=== PATIENT | female | born 1970 | race Two or more races ===

== ENCOUNTER 2017-08-05 10:39 | Emergency (ER) | payer SELFPAY ==
[~2017-08-05] VITALS: Ht 165.1 cm; Wt 72.6 kg
[2017-08-05 11:15] VITALS: BP 113/60
[2017-08-05 11:33] LABS: APPEARANCE,URINE SLIGHTLY CLOUDY; BILIRUBIN, URINE NEGATIVE (NEGATIVE); COLOR,URINE PALE YELLOW; GLUCOSE, URINE (UA) NEGATIVE (NEGATIVE); KETONES,URINE NEGATIVE (NEGATIVE); LEUKOCYTE ESTERASE ,URINE 3+ (NEGATIVE); NITRITE,URINE NEGATIVE (NEGATIVE); PH,URINE 5 (4.5-8.0); PROTEIN,URINE 2+ (NEGATIVE); UROBILINOGEN,URINE NORMAL MG/DL (0.0-1.0)
[2017-08-05 11:34] LABS: BASOPHILS % (AUTO) 0.5 % (0.0-2.0); EOSINOPHILS % (AUTO) 2.8 % (0.0-3.0); HEMATOCRIT 36.8 % (37.0-47.0); HEMOGLOBIN 12.2 G/DL (12.0-16.0); LYMPHOCYTES % (AUTO) 39.4 % (20.0-45.0); MEAN CORPUSCULAR VOLUME 87 FL (80-99); NEUTROPHILS % (AUTO) 49.3 % (45.0-75.0); PLATELET COUNT 232 K/UL (150-450); RED BLOOD COUNT 4.21 M/UL (4.20-5.40); RED CELL DISTRIBUTION WIDTH 12.1 % (11.6-14.8); WHITE BLOOD COUNT 4.4 K/UL (4.8-10.8)
[2017-08-05 11:45] LABS: ANION GAP 5 mmol/L (5-15); BLOOD UREA NITROGEN 19 mg/dL (7-18); CALCIUM 9.1 MG/DL (8.5-10.1); CARBON DIOXIDE 30 MMOL/L (21-32); CHLORIDE 104 MMOL/L (98-107); CREATININE 1.1 MG/DL (0.55-1.30); POTASSIUM 3.7 MMOL/L (3.5-5.1); SODIUM 139 MMOL/L (136-145)
[2017-08-05 11:56] LABS: ALANINE AMINOTRANSFERASE 30 U/L (12-78); ALBUMIN 3.7 G/DL (3.4-5.0); ALKALINE PHOSPHATASE 74 U/L (46-116); ASPARTATE AMINO TRANSFERASE 19 U/L (15-37); BILIRUBIN,TOTAL 0.4 MG/DL (0.2-1.0); CREATINE KINASE 159 U/L (26-308)
[2017-08-05] MEDS ORDERED: cefTRIAXone 1 GM in NS 55 ML IVPB ONE (12:15)
--- NOTE | 2017-08-05 15:11 | Emergency Room Report ---
History of Present Illness General Chief Complaint: General Complaint Source: Patient, EMS Present Illness HPI Paramedics were called because this patient was in the streets naked. They're unable to determine where she is from. She denies taking any psychiatric medications at this time. She also denies drugs or alcohol. She denies any pain at this time. She states she's been eating well. The patient states that in the past she was on Zyprexa. It's been several years since she was last taking it. No fevers, chills, chest pain, palpitations, nausea, vomiting, diarrhea, dysuria , abdominal pain, shortness of breath, depression, visual changes, headache. Allergies: Coded Allergies: No Known Allergies (Unverified , 08/05/17) Patient History Past Medical History: see triage record Social History: Denies: smoking, alcohol use, drug use Social History Narrative From [place] - in for 2 years Allegedly lives with father Last Menstrual Period: unknown Reviewed Nursing Documentation: PMH: Agreed; PSxH: Agreed Nursing Documentation-PMH Past Medical History: No History, Except For Review of Systems All Other Systems: negative except mentioned in HPI Physical Exam Vital Signs Date Time Temp Pulse Resp B/P (MAP) Pulse Ox O2 Delivery O2 Flow Rate FiO2 08/05/17 10:27 97.6 96 18 111/65 98 Room Air 97.5 Sp02 EP Interpretation: reviewed, normal General Appearance: well appearing, no apparent distress, other - dishevelled - slightly delusional GCS 14 Head: normocephalic Eyes: bilateral eye normal inspection, bilateral eye PERRL, bilateral eye EOMI ENT: moist mucus membranes Neck: supple Respiratory: lungs clear, normal breath sounds Cardiovascular #1: regular rate, rhythm Cardiovascular #2: 2+ radial (R) Gastrointestinal: normal inspection, normal bowel sounds, non tender, no mass, non-distended Musculoskeletal: back normal, gait/station normal, normal range of motion Neurologic: alert, grossly normal, oriented - X2 - somewhat unclear where she is Psychiatric: no suicidal/homicidal ideation, other - flat affect Reflexes: 2+ knee (R), 2+ knee (L) Skin: warm/dry, other - hyperpigmented arms Medical Decision Making Diagnostic Impression: Primary Impression: Bizarre behavior Additional Impressions: Schizophrenia Qualified Codes: F20.9 - Schizophrenia, unspecified UTI (urinary tract infection) Qualified Codes: N30.00 - Acute cystitis without hematuria ER Course Patient is brought in for bizarre behavior. She's denies suicidal or homicidal ideation. She states she's been eating well. Differential includes exacerbation of schizophrenia, drug ingestion, electrolyte abnormalities amongst others. Evaluation will be with EKG, chest x-ray and labs. Labs are unremarkable. Patient has UTI and is treated with Rocephin IV. Patient given dose of Zyprexa. We are unable to determine the patient's home location. A social service consult was requested. Discussed with [employer]. The history SW obtained was different from what happened with the patient. I am uncomfortable discharging the patient who - although improved at this time still exhibits delusional thoughts. Discussed with Dr. Landry. The patient signed out to Dr. Landry Patient stable through night. No delusional thinking. Purposeful. Treated for UTI and trichomonas. Zyprexa given this AM. Patient stable for discharge. Her plan is to go to her father's house. Taken to bus to ensure she knows how to get there. Laboratory Tests Test 08/05/17 11:04 White Blood Count 4.4 K/UL (4.8-10.8) L Red Blood Count 4.21 M/UL (4.20-5.40) Hemoglobin 12.2 G/DL (12.0-16.0) Hematocrit 36.8 % (37.0-47.0) L Mean Corpuscular Volume 87 FL (80-99) Mean Corpuscular Hemoglobin 29.0 PG (27.0-31.0) Mean Corpuscular Hemoglobin Concent 33.2 G/DL (32.0-36.0) Red Cell Distribution Width 12.1 % (11.6-14.8) Platelet Count 232 K/UL (150-450) Mean Platelet Volume 7.0 FL (6.5-10.1) Neutrophils (%) (Auto) 49.3 % (45.0-75.0) Lymphocytes (%) (Auto) 39.4 % (20.0-45.0) Monocytes (%) (Auto) 8.0 % (1.0-10.0) Eosinophils (%) (Auto) 2.8 % (0.0-3.0) Basophils (%) (Auto) 0.5 % (0.0-2.0) Urine Color Pale yellow Urine Appearance Slightly cloudy Urine pH 5 (4.5-8.0) Urine Specific [place] 1.015 (1.005-1.035) Urine Protein 2+ (NEGATIVE) H Urine Glucose (UA) Negative (NEGATIVE) Urine Ketones Negative (NEGATIVE) Urine Occult Blood 1+ (NEGATIVE) H Urine Nitrite Negative (NEGATIVE) Urine Bilirubin Negative (NEGATIVE) Urine Urobilinogen Normal MG/DL (0.0-1.0) Urine Leukocyte Esterase 3+ (NEGATIVE) H Urine RBC 10-15 /HPF (0 - 2) H Urine WBC 10-15 /HPF (0 - 2) H Urine Squamous Epithelial Cells Moderate /LPF (NONE/OCC) H Urine Bacteria Few /HPF (NONE) Urine Trichomonas Few /HPF (NONE) H Urine HCG, Qualitative Negative (NEGATIVE) Sodium Level 139 MMOL/L (136-145) Potassium Level 3.7 MMOL/L (3.5-5.1) Chloride Level 104 MMOL/L (98-107) Carbon Dioxide Level 30 MMOL/L (21-32) Anion Gap 5 mmol/L (5-15) Blood Urea Nitrogen 19 mg/dL (7-18) H Creatinine 1.1 MG/DL (0.55-1.30) Estimate Glomerular Filtration Rate 53.0 mL/min (>60) Glucose Level 122 MG/DL (74-106) H Calcium Level 9.1 MG/DL (8.5-10.1) Total Bilirubin 0.4 MG/DL (0.2-1.0) Aspartate Amino Transferase (AST) 19 U/L (15-37) Alanine Aminotransferase (ALT) 30 U/L (12-78) Alkaline Phosphatase 74 U/L (46-116) Total Creatine Kinase 159 U/L (26-308) Troponin I 0.000 ng/mL (0.000-0.056) Total Protein 7.3 G/DL (6.4-8.2) Albumin 3.7 G/DL (3.4-5.0) Globulin 3.6 g/dL Albumin/Globulin Ratio 1.0 (1.0-2.7) Thyroid Stimulating Hormone (TSH) 2.093 uiU/mL (0.358-3.740) Salicylates Level 0.3 ug/mL (2.8-20) L Urine Opiates Screen Negative (NEGATIVE) Acetaminophen Level < 2 MCG/ML (10-30) L Urine Barbiturates Screen Negative (NEGATIVE) Phencyclidine (PCP) Screen Negative (NEGATIVE) Urine Amphetamines Screen Negative (NEGATIVE) Urine Benzodiazepines Screen Negative (NEGATIVE) Urine Cocaine Screen Negative (NEGATIVE) Urine Marijuana (THC) Screen Negative (NEGATIVE) Serum Alcohol < 3 mg/dL EKG Diagnostic Results Rate: normal Rhythm: NSR ST Segments: no acute changes Rhythm Strip Diag. Results EP Interpretation: yes Rhythm: NSR, no PVC's, no ectopy Status: improved Disposition: HOME, SELF-CARE Condition: Improved Scripts Metronidazole* (FLAGYL*) 500 Mg Tablet 500 MG ORAL TID, #21 TAB Prov: Rm Rodriguez M.D. 08/06/17 Nitrofurantoin Monohyd/M-Cryst* (MACROBID 100 MG*) 100 Mg Capsule 100 MG ORAL EVERY 12 HOURS for 7 Days, CAP Prov: Rm Rodriguez M.D. 08/06/17 Olanzapine* (ZYPREXA*) 5 Mg Tablet 5 MG ORAL DAILY, #20 TAB 1 Refill Prov: Rm Rodriguez M.D. 08/06/17 Referrals: NOT CHOSEN SANDIP/,REFERRING (PCP) Rm Rodriguez M.D. Aug 05, 2017 15:11
[2017-08-05 15:15] VITALS: BP 121/71
--- NOTE | 2017-08-05 16:54 | Diagnostic Imaging Report ---
Indication: Altered mental status Technique: Continuous helical CT scanning of the head was performed without intravenous contrast material. Axial and coronal 5 mm sections were generated. Radiation dose was minimized using automated exposure control Dose: Total Dose Length Product - DLP 1295.[address] Dose Index - CTDIvol(s) 70.38 mGy. Comparison: none Findings: The ventricular system is normal in size and configuration. There is no shift of midline structures. No abnormal extra-axial fluid collections are noted. There is no evidence of intracerebral bleeding. No other abnormal high or low density areas are noted within the brain. Normal tripathi-white differentiation. The calvarium is intact. The sinuses are clear. The visualized orbits are unremarkable. The mastoids are clear Impression: Normal CT scan of the head without contrast material. The CT scanner at [facility] is accredited by the [employer] and the scans are performed using protocols designed to limit radiation exposure to as low as reasonably achievable to attain images of sufficient resolution adequate for diagnostic evaluation.
[2017-08-05 19:00] VITALS: BP 119/67
[2017-08-05 21:00] VITALS: BP 125/66
--- NOTE | 2017-08-05 22:53 | Emergency Room Report ---
History of Present Illness General Chief Complaint: General Complaint Source: Patient, EMS Present Illness HPI Patient has been calm and cooperative here, does not appear agitated all, not requiring medications. She is pending PET team evaluation as gravely disabled. Noncontrast CT head was obtained, revealed no acute pathology, and patient has not exhibited any neurologic deficits, and remains medically cleared for placement after PET team evaluation. Allergies: Coded Allergies: No Known Allergies (Unverified , 08/05/17) Patient History Past Medical History: see triage record Last Menstrual Period: unknown Reviewed Nursing Documentation: PMH: Agreed; PSxH: Agreed Nursing Documentation-PMH Past Medical History: No History, Except For Physical Exam Vital Signs Date Time Temp Pulse Resp B/P (MAP) Pulse Ox O2 Delivery O2 Flow Rate FiO2 08/05/17 10:27 97.6 96 18 111/65 98 Room Air 97.5 Medical Decision Making Diagnostic Impression: Primary Impression: Bizarre behavior Additional Impressions: Schizophrenia Qualified Codes: F20.9 - Schizophrenia, unspecified UTI (urinary tract infection) Qualified Codes: N30.00 - Acute cystitis without hematuria Last Vital Signs Date Time Temp Pulse Resp B/P (MAP) Pulse Ox O2 Delivery O2 Flow Rate FiO2 08/05/17 19:00 97.8 56 18 119/67 96 Room Air 97.8 Referrals: NOT CHOSEN SANDIP/,REFERRING (PCP) DAFNE ESPARZA M.D Aug 05, 2017 22:53
[2017-08-05 23:00] VITALS: BP 117/67
[2017-08-06 01:00] VITALS: BP 122/66
[2017-08-06 03:00] VITALS: BP 126/66
[2017-08-06 05:00] VITALS: BP 121/63
--- NOTE | 2017-08-06 06:05 | Emergency Room Report ---
Physical Exam Vital Signs Date Time Temp Pulse Resp B/P (MAP) Pulse Ox O2 Delivery O2 Flow Rate FiO2 08/05/17 10:27 97.6 96 18 111/65 98 Room Air 97.5 Medical Decision Making Diagnostic Impression: Primary Impression: Bizarre behavior Additional Impressions: Schizophrenia Qualified Codes: F20.9 - Schizophrenia, unspecified UTI (urinary tract infection) Qualified Codes: N30.00 - Acute cystitis without hematuria Trichomonal cervicitis ER Course Patient signout to me or possible psych evaluation in the morning. Patient is been calm and not agitated at all. She was treated for UTI with Rocephin. I noticed that she had trichomonas in her urine. I order Flagyl for her. Last Vital Signs Date Time Temp Pulse Resp B/P (MAP) Pulse Ox O2 Delivery O2 Flow Rate FiO2 08/06/17 03:00 97.9 76 16 126/66 99 Room Air 97.9 Referrals: NOT CHOSEN SANDIP/,REFERRING (PCP) DEDRA TREJO M.D. Aug 06, 2017 06:05
[2017-08-06] MEDS ORDERED: metroNIDAZOLE 500mg tab ORAL ONE (06:15)
[2017-08-06] MEDS ORDERED: ZYPREXA5 MG ORAL (06:29)
[2017-08-06] MEDS ORDERED: NITROFURANTOIN100 M2 ORAL (06:29)
[2017-08-06] MEDS ORDERED: METRONIDAZOLE500 MG ORAL (06:29)
[2017-08-06 06:35] VITALS: BP 126/66
--- NOTE | 2017-08-06 17:25 | Cardiology Report ---
APPROVED REPORT EKG Measurement Heart [id number] ME [id number] Normal sinus rhythm with sinus arrhythmia Moderate voltage criteria for LVH, may be normal variant Nonspecific T wave abnormality Abnormal ECG
[2017-08-07] MEDS ORDERED: NKM (08:56)
== END 2017-08-06 06:35 | disposition home or self-care (01) ==
LOC: EDBD 10:39 → EMR 11:00
DX: F91.9 Conduct disorder, unspecified (principal); F20.9 Schizophrenia, unspecified; N39.0 Urinary tract infection, site not specified; A59.09 Other urogenital trichomoniasis; R41.82 Altered mental status, unspecified
CPT/HCPCS: 36415; 70450; 80053; 80307; 81003; 81025; 82550; 84443; 84484; 85025; 87086; 93005; 96374; 99284; G0480; J0696; 80329

== ENCOUNTER 2017-08-07 08:52 | Emergency (ER) | payer SELFPAY ==
[~2017-08-07] VITALS: Ht 167.6 cm; Wt 68.0 kg
[~2017-08-07 08:52] MED LIST: METRONIDAZOLE500 MG ORAL; NITROFURANTOIN100 M2 ORAL; ZYPREXA5 MG ORAL
[2017-08-07] MEDS ORDERED: NKM (08:56)
[2017-08-07] MEDS ORDERED: ZyPREXA Zydis 10mg tab ORAL ONE (09:30)
[2017-08-07] MEDS ORDERED: metroNIDAZOLE 500mg tab ORAL ONE (09:30)
[2017-08-07 09:51] LABS: APPEARANCE,URINE CLEAR; BILIRUBIN, URINE NEGATIVE (NEGATIVE); COLOR,URINE PALE YELLOW; GLUCOSE, URINE (UA) NEGATIVE (NEGATIVE); KETONES,URINE NEGATIVE (NEGATIVE); LEUKOCYTE ESTERASE ,URINE 2+ (NEGATIVE); NITRITE,URINE NEGATIVE (NEGATIVE); PH,URINE 5 (4.5-8.0); PROTEIN,URINE NEGATIVE (NEGATIVE); UROBILINOGEN,URINE NORMAL MG/DL (0.0-1.0)
[2017-08-07 09:54] LABS: BASOPHILS % (AUTO) 1.7 % (0.0-2.0); EOSINOPHILS % (AUTO) 5.1 % (0.0-3.0); HEMATOCRIT 37.6 % (37.0-47.0); HEMOGLOBIN 12.6 G/DL (12.0-16.0); LYMPHOCYTES % (AUTO) 40.6 % (20.0-45.0); MEAN CORPUSCULAR VOLUME 87 FL (80-99); MONOCYTES % (AUTO) 7.3 % (1.0-10.0); NEUTROPHILS % (AUTO) 45.3 % (45.0-75.0); PLATELET COUNT 258 K/UL (150-450); RED BLOOD COUNT 4.31 M/UL (4.20-5.40); RED CELL DISTRIBUTION WIDTH 12.2 % (11.6-14.8); WHITE BLOOD COUNT 3.7 K/UL (4.8-10.8)
[2017-08-07 09:57] LABS: ANION GAP 7 mmol/L (5-15); BLOOD UREA NITROGEN 17 mg/dL (7-18); CALCIUM 9.2 MG/DL (8.5-10.1); CARBON DIOXIDE 30 MMOL/L (21-32); CHLORIDE 105 MMOL/L (98-107); CREATININE 0.9 MG/DL (0.55-1.30); POTASSIUM 4.1 MMOL/L (3.5-5.1); SODIUM 142 MMOL/L (136-145)
[2017-08-07 10:01] LABS: ALANINE AMINOTRANSFERASE 28 U/L (12-78); ALBUMIN 4.2 G/DL (3.4-5.0); ALKALINE PHOSPHATASE 81 U/L (46-116); ASPARTATE AMINO TRANSFERASE 26 U/L (15-37); BILIRUBIN,TOTAL 0.7 MG/DL (0.2-1.0)
[2017-08-07 10:34] VITALS: BP 121/80
[2017-08-07 13:17] VITALS: BP 117/75
--- NOTE | 2017-08-07 15:51 | Emergency Room Report ---
History of Present Illness General Chief Complaint: General Complaint Source: Patient, Medical Record Present Illness HPI This patient has a history of schizophrenia. She has been to this hospital 4 times in the last 48 hours. She continues to be brought in for bizarre behavior. She stripped down naked and EMS gets called by bystanders. The patient herself has no complaints. She thinks it is normal to be naked. She admits that she has a history of schizophrenia and had been on Zyprexa but doesn 't have any and hasn't been taking any Zyprexa. She denies drug or alcohol use. She has no other complaints. Allergies: Coded Allergies: No Known Allergies (Unverified , 08/05/17) Patient History Past Medical History: see triage record, psych hx Social History: Denies: smoking, alcohol use, drug use Last Menstrual Period: yr ago Reviewed Nursing Documentation: PMH: Agreed; PSxH: Agreed Nursing Documentation-PMH Past Medical History: No History, Except For Review of Systems All Other Systems: negative except mentioned in HPI Physical Exam Vital Signs Date Time Temp Pulse Resp B/P (MAP) Pulse Ox O2 Delivery O2 Flow Rate FiO2 08/07/17 08:52 97.4 70 16 149/99 98 Room Air 97.3 Sp02 EP Interpretation: reviewed, normal General Appearance: no apparent distress, alert, GCS 15, non-toxic Head: normocephalic, atraumatic Eyes: bilateral eye normal inspection, bilateral eye PERRL ENT: hearing grossly normal, normal pharynx, no angioedema, normal voice Neck: full range of motion, supple/symm/no masses Respiratory: chest non-tender, lungs clear, normal breath sounds, speaking full sentences Cardiovascular #1: regular rate, rhythm, no edema Gastrointestinal: normal bowel sounds, non tender, soft, non-distended, no guarding, no rebound Rectal: deferred Musculoskeletal: back normal, gait/station normal, normal range of motion, non- tender Neurologic: alert, responsive, motor strength/tone normal, sensory intact, speech normal Psychiatric: no suicidal/homicidal ideation, other - No insight. Hallucinating. Skin: normal color, no rash, warm/dry, well hydrated Medical Decision Making Behavioral: Schizophrenia Diagnostic Impression: Primary Impression: Schizophrenia, acute ER Course The patient has uncontrolled schizophrenia. She is unable to function in society. She is naked and talking to herself. She is gravely disabled. The patient has no suicidal or homicidal ideation. She is pleasant and agreeable. The patient agrees to undergo care under a psychiatrist at an inpatient facility. She was given Zyprexa here in the emergency department. She remained agreeable and nonaggressive. She is medically cleared for psychiatric care. Laboratory Tests Test 08/07/17 09:30 White Blood Count 3.7 K/UL (4.8-10.8) L Red Blood Count 4.31 M/UL (4.20-5.40) Hemoglobin 12.6 G/DL (12.0-16.0) Hematocrit 37.6 % (37.0-47.0) Mean Corpuscular Volume 87 FL (80-99) Mean Corpuscular Hemoglobin 29.2 PG (27.0-31.0) Mean Corpuscular Hemoglobin Concent 33.4 G/DL (32.0-36.0) Red Cell Distribution Width 12.2 % (11.6-14.8) Platelet Count 258 K/UL (150-450) Mean Platelet Volume 7.5 FL (6.5-10.1) Neutrophils (%) (Auto) 45.3 % (45.0-75.0) Lymphocytes (%) (Auto) 40.6 % (20.0-45.0) Monocytes (%) (Auto) 7.3 % (1.0-10.0) Eosinophils (%) (Auto) 5.1 % (0.0-3.0) H Basophils (%) (Auto) 1.7 % (0.0-2.0) Urine Color Pale yellow Urine Appearance Clear Urine pH 5 (4.5-8.0) Urine Specific [place] 1.015 (1.005-1.035) Urine Protein Negative (NEGATIVE) Urine Glucose (UA) Negative (NEGATIVE) Urine Ketones Negative (NEGATIVE) Urine Occult Blood 1+ (NEGATIVE) H Urine Nitrite Negative (NEGATIVE) Urine Bilirubin Negative (NEGATIVE) Urine Urobilinogen Normal MG/DL (0.0-1.0) Urine Leukocyte Esterase 2+ (NEGATIVE) H Urine RBC 0-2 /HPF (0 - 2) Urine WBC 2-4 /HPF (0 - 2) Urine Squamous Epithelial Cells Occasional /LPF Urine Bacteria Occasional /HPF (NONE) Urine HCG, Qualitative Negative (NEGATIVE) Sodium Level 142 MMOL/L (136-145) Potassium Level 4.1 MMOL/L (3.5-5.1) Chloride Level 105 MMOL/L (98-107) Carbon Dioxide Level 30 MMOL/L (21-32) Anion Gap 7 mmol/L (5-15) Blood Urea Nitrogen 17 mg/dL (7-18) Creatinine 0.9 MG/DL (0.55-1.30) Estimate Glomerular Filtration Rate > 60 mL/min (>60) Glucose Level 94 MG/DL (74-106) Calcium Level 9.2 MG/DL (8.5-10.1) Total Bilirubin 0.7 MG/DL (0.2-1.0) Aspartate Amino Transferase (AST) 26 U/L (15-37) Alanine Aminotransferase (ALT) 28 U/L (12-78) Alkaline Phosphatase 81 U/L (46-116) Total Protein 8.2 G/DL (6.4-8.2) Albumin 4.2 G/DL (3.4-5.0) Globulin 4.0 g/dL Albumin/Globulin Ratio 1.0 (1.0-2.7) Salicylates Level 0.5 ug/mL (2.8-20) L Urine Opiates Screen Negative (NEGATIVE) Acetaminophen Level < 2 MCG/ML (10-30) L Urine Barbiturates Screen Negative (NEGATIVE) Phencyclidine (PCP) Screen Negative (NEGATIVE) Urine Amphetamines Screen Negative (NEGATIVE) Urine Benzodiazepines Screen Negative (NEGATIVE) Urine Cocaine Screen Negative (NEGATIVE) Urine Marijuana (THC) Screen Negative (NEGATIVE) Serum Alcohol < 3 mg/dL Last Vital Signs Date Time Temp Pulse Resp B/P (MAP) Pulse Ox O2 Delivery O2 Flow Rate FiO2 08/07/17 13:17 98.5 74 15 117/75 98 Room Air 98.5 Disposition: XFER TO PSYCH HOSP/UNIT Condition: Serious Referrals: NOT CHOSEN SANDIP/,REFERRING (PCP) RACHANA HOFFMAN D.O. Aug 07, 2017 15:51
[2017-08-07 16:02] VITALS: BP 123/80
[2017-08-07 23:30] VITALS: BP 120/75
[2017-08-08 06:55] VITALS: BP 84/77
--- NOTE | 2017-08-08 10:26 | Consultation ---
History of Present Illness General Date patient seen: Aug 08, 2017 Chief Complaint: General Complaint Present Illness HPI the pt is a 46 yo [facility] female with hx of schizophrenia, and depression. the pt has had several admission to hospital over the past 72 hours. the pt was disorganized and denied si/hi/delusions. the pt has been walking naked in the street. the pt stated that she wanted to leave the er. the pt was calm and not endorsing any sxs that are consistent with waldo nor depression. the pt stated that she would take haldol dec shot. the pt did not disrobe in er and was appropriate. Allergies: Coded Allergies: No Known Allergies (Unverified , 08/05/17) Medication History Scheduled Metronidazole* (Flagyl*), 500 MG ORAL TID Nitrofurantoin Monohyd/M-Cryst* (Macrobid 100 Mg*), 100 MG ORAL EVERY 12 HOURS No Known Medications* (NKM - No Known Medications*), 0 ., (Reported) Olanzapine* (Zyprexa*), 5 MG ORAL DAILY Patient History Limited by: medical condition History Provided By: Patient, Medical Record, PMD Healthcare decision maker Resuscitation status Advanced Directive on File Past Medical/Surgical History Past Medical/Surgical History: (1) Schizophrenia, acute Review of Systems Psychiatric: Reports: prior hx, depressed feelings, other - delusional Physical Exam General Appearance: no apparent distress, alert Neurologic: responsive, depressed affect Last 24 Hour Vital Signs Date Time Temp Pulse Resp B/P (MAP) Pulse Ox O2 Delivery O2 Flow Rate FiO2 08/08/17 06:55 97.8 59 14 84/77 97 Room Air 97.8 08/07/17 23:30 97.8 79 14 120/75 97 Room Air 97.8 08/07/17 16:02 98.0 80 17 123/80 99 Room Air 98.0 08/07/17 13:17 98.5 74 15 117/75 98 Room Air 98.5 08/07/17 10:34 97.6 80 17 121/80 99 Room Air 97.6 Height (Feet): 5 Height (Inches): 6.00 Weight (Pounds): 150 Assessment/Plan Assessment/Plan schizophrenia the pt was observed eating and not disrobing not a danger to self or others. the pt is calm and not gravely disabled. -haldol dec 50 -zyprexa po -the pt will be dis charged to a fdc. Berta Linares M.D. Aug 08, 2017 10:26
[2017-08-08 11:00] VITALS: BP 127/78
[2017-08-08] MEDS ORDERED: Haloperidol Decanoate 50mg Inj IM SCH (11:00)
[2017-08-08 12:52] VITALS: BP 127/78
== END 2017-08-08 12:58 | disposition home or self-care (01) ==
LOC: EDBD 08:52 → EMR 09:28
DX: F23 Brief psychotic disorder (principal); F32.9 Major depressive disorder, single episode, unspecified
CPT/HCPCS: 36415; 80053; 80307; 81003; 81025; 85025; 96372; 99284; G0480; J1631; 80329